=== PATIENT | male | born 1970 | race Caucasian/White ===

== ENCOUNTER 2023-05-14 15:59 | Emergency (ER) | payer SELFPAY, OTHER ==
[2023-05-14] MEDS ORDERED: Ibuprofen 800 MG TAB ONE (16:43)
[2023-05-14] MEDS ORDERED: Orphenadrine Citrate 100 MG ER.TAB ONE (16:43)
== END 2023-05-14 17:43 | disposition home or self-care (01) ==
LOC: ERS 15:59
DX: M54.50 Low back pain, unspecified (principal); V49.9XXA Car occupant (driver) (passenger) injured in unspecified traffic accident, initial encounter
CPT/HCPCS: 72100